=== PATIENT | male | born 1970 | race Native Hawaiian/Other Pacific Islander ===

== ENCOUNTER 2018-12-22 11:02 | Observation (INO) | payer OTHER ==
--- NOTE | 2018-12-22 11:19 | C.PDOC ---
History Of Present Illness 48 year old male with PMHx of CAD, 3 cardiac stents, diabetes, HTN and HLD presents to the ED complaining of chest pain that started on the right side and now radiates to left side. Describes pain as throbbing and rates pain as 2-3/10. Denies any nausea, vomiting, shortness of breath, or any other symptoms. PMD: Dr. Stock Product Support Technician: Dr. Farfan Time Seen by Provider: 12/22/18 11:05 Chief Complaint (Nursing): Chest Pain History Per: Patient History/Exam Limitations: no limitations Onset/Duration Of Symptoms: Days Current Symptoms Are (Timing): Still Present Quality: "Pain" Past Medical History Reviewed: Historical Data, Nursing Documentation, Vital Signs Vital Signs: Last Vital Signs Temp 98.8 F 12/22/18 11:06 Pulse 83 12/22/18 11:06 Resp 18 12/22/18 11:06 BP 178/96 H 12/22/18 11:06 Pulse Ox 100 12/22/18 11:06 Primary Care Provider: Brent Felix - Medical History PMH: Asthma, Benign Prostatic Hyperplasia, HTN, Hypercholesterolemia Surgical History: Coronary Stent (x3) Family History: States: No Known Family Hx - Social History Hx Alcohol Use: No Hx Substance Use: No - Immunization History Hx Tetanus Toxoid Vaccination: Yes Hx Influenza Vaccination: No Hx Pneumococcal Vaccination: No Review Of Systems Except As Marked, All Systems Reviewed And Found Negative. Constitutional: Negative for: Fever, Chills Cardiovascular: Positive for: Chest Pain Respiratory: Negative for: Shortness of Breath Gastrointestinal: Negative for: Nausea, Vomiting Physical Exam - Physical Exam Appears: Non-toxic, No Acute Distress Skin: Warm, Dry, No Rash Head: Normacephalic Eye(s): bilateral: Normal Inspection Nose: Normal Oral Mucosa: Moist Neck: Supple Chest: Symmetrical, No Tenderness Cardiovascular: Rhythm Regular Respiratory: Normal Breath Sounds, No Rales, No Rhonchi, No Wheezing Gastrointestinal/Abdominal: Soft, No Tenderness Neurological/Psych: Oriented x3, Normal Speech Gait: Steady ED Course And Treatment - Laboratory Results Result Diagrams: 12/22/18 11:53 12/22/18 11:53 ECG: Interpreted By Me, Viewed By Me ECG Rhythm: Sinus Rhythm ECG Interpretation: No Acute Changes Interpretation Of ECG: LVH Rate From EC O2 Sat by Pulse Oximetry: 100 (RA) Pulse Ox Interpretation: Normal - Radiology CXR: Interpreted by Me CXR Interpretation: Yes: No Acute Disease Progress Note: Blood collected and sent to the lab for analysis. Case was d/w who accepted patient to his service to [facility] for observation. Disposition - Disposition Disposition: HOSPITALIZED Disposition Time: 14:07 Condition: FAIR - Clinical Impression Clinical Impression: Chest pain - PA / [employer] WORKER / Resident Statement MD/DO has reviewed & agrees with the documentation as recorded. - Scribe Statement The provider has reviewed the documentation as recorded by the Scribe Socorro Pastor All medical record entries made by the Scribe were at my direction and personally dictated by me. I have reviewed the chart and agree that the record accurately reflects my personal performance of the history, physical exam, medical decision making, and the department course for this patient. I have also personally directed, reviewed, and agree with the discharge instructions and disposition. Decision To Admit - Pt Status Changed To: Hospital Disposition Of: Observation - . Bed Request Type: Telemetry Admitting Physician: Rey Lopez Patient Diagnosis: Chest pain
[2018-12-22 12:11] LABS: ALB/GLOB RATIO 1.7 (1.0-2.1); ALBUMIN 4.8 g/dL (3.5-5.0); ALT/SGPT 37 U/L (21-72); AST/SGOT 28 U/L (17-59); BLOOD UREA NITROGEN 14 mg/dL (9-20); CALCIUM 9.5 mg/dl (8.6-10.4); GFR NON-AFRICAN AMERICAN > 60
[2018-12-22 12:23] LABS: BASO # 0.1 K/uL (0.0-0.2); CK-MB 0.73 ng/mL (0.0-3.38); EOS # 0.6 K/uL (0.0-0.7); EOS % 10.3 % (0.0-4.0); HEMOGLOBIN 13.8 g/dL (12.0-18.0); LYMPH # 0.8 K/uL (1.0-4.3); LYMPH % 13.8 % (20.0-40.0); MEAN CELL VOLUME 86.6 fL (80.0-94.0); MEAN CORPUSCULAR HGB CONC 34.6 g/dL (33.0-37.0); MEAN PLATELET VOLUME 7.8 fL (7.2-11.7); MONO # 0.4 K/uL (0.0-0.8); MONO % 7.4 % (0.0-10.0); NEUT # 3.9 K/uL (1.8-7.0); NEUT % 67.5 % (50.0-75.0); RBC 4.6 Mil/uL (4.40-5.90); RED CELL DISTRIBUTION WIDTH 13.7 % (11.5-14.5); WHITE BLOOD COUNT 5.7 K/uL (4.8-10.8)
[2018-12-22 12:31] LABS: INR 1.1; PROTHROMBIN TIME 11.7 SECONDS (9.7-12.2)
[2018-12-22 12:42] LABS: D DIMER < 200 ng/mlDDU (0-243)
--- NOTE | 2018-12-22 14:15 | RAD ---
Date of service: 12/22/2018 HISTORY: chest pain COMPARISON: No prior. TECHNIQUE: 1 view obtained. FINDINGS: LUNGS: No active pulmonary disease. PLEURA: No significant pleural effusion identified, no pneumothorax apparent. CARDIOVASCULAR: No aortic atherosclerotic calcification present. Normal cardiac size. No pulmonary vascular congestion. OSSEOUS STRUCTURES: No significant abnormalities. VISUALIZED UPPER ABDOMEN: Normal. OTHER FINDINGS: None. IMPRESSION: No active disease.
--- NOTE | 2018-12-22 17:03 | CP.PCM.HP ---
Past Patient History - Past Social History Smoking Status: Never Smoked - CARDIAC Hx Hypercholesterolemia: Yes Hx Hypertension: Yes - PULMONARY Hx Asthma: Yes - PSYCHIATRIC Hx Substance Use: No - SURGICAL HISTORY Hx Coronary Stent: Yes (x3) Meds Allergies/Adverse Reactions: Allergies Allergy/AdvReac Type Severity Reaction Status Date / Time aspirin [From [place]] Allergy Verified 12/22/18 11:11 brompheniramine Allergy Verified 12/22/18 11:11 [From Dimet[place] (brompheniramine-PPA)] citric acid Allergy Verified 12/22/18 11:11 [From [facility]] phenylpropanolamine Allergy Verified 12/22/18 11:11 [From Dimetapp (brompheniramine-PPA)] sodium bicarbonate Allergy Verified 12/22/18 11:11 [From [place]] Results - Vital Signs Recent Vital Signs: Last Vital Signs Temp 98.8 F 12/22/18 11:06 Pulse 68 12/22/18 16:00 Resp 15 12/22/18 14:55 BP 131/86 12/22/18 14:55 Pulse Ox 100 12/22/18 14:55 - Labs Result Diagrams: 12/22/18 11:53 12/22/18 11:53 Labs: Laboratory Results - last 24 hr 12/22/18 12/22/18 12/22/18 11:53 11:53 11:53 WBC 5.7 RBC 4.60 Hgb 13.8 Hct 39.8 MCV 86.6 MCH 30.0 MCHC 34.6 RDW 13.7 Plt Count 200 MPV 7.8 Neut % (Auto) 67.5 Lymph % (Auto) 13.8 L [place] % (Auto) 7.4 Eos % (Auto) 10.3 H Baso % (Auto) 1.0 Neut # (Auto) 3.9 Lymph # (Auto) 0.8 L [place] # (Auto) 0.4 Eos # (Auto) 0.6 Baso # (Auto) 0.1 PT 11.7 INR 1.1 APTT 32.0 D-Dimer, Quantitative < 200 Sodium 140 Potassium 3.8 Chloride 98 Carbon Dioxide 27 Anion Gap 18 BUN 14 Creatinine 0.9 Est GFR ( Amer) > 60 Est GFR (Non-Af Amer) > 60 Random Glucose 199 H Calcium 9.5 Total Bilirubin 0.8 AST 28 ALT 37 Alkaline Phosphatase 78 Total Creatine Kinase 119 CK-MB (Mass) 0.73 Troponin I < 0.0120 Total Protein 7.6 Albumin 4.8 Globulin 2.8 Albumin/Globulin Ratio 1.7
[2018-12-22] MEDS: (Novolog) Insulin Aspart, Recombinant 100 u/ml 10 ml vial SC SCH ×2 (17:19→21:20)
[2018-12-22 20:04] LABS: CK-MB 0.51 ng/mL (0.0-3.38)
--- NOTE | 2018-12-22 20:42 | CP.PCM.CON ---
History of Present Illness - History of Present Illness History of Present Illness: CC: Chest Pain 48 year old male with PMHx of CAD, 3 cardiac stents, diabetes, HTN and HLD presents to the ED complaining of chest pain that started on the right side and now radiates to left side. Describes pain as throbbing and rates pain as 2-3/10. Denies any nausea, vomiting, shortness of breath, or any other symptoms. PMD: Dr. Stock Teletype Clerk: Dr. Farfan Chief Complaint (Nursing): Chest Pain History Per: Patient History/Exam Limitations: no limitations Onset/Duration Of Symptoms: Days Current Symptoms Are (Timing): Still Present Quality: "Pain" Past Medical History Reviewed: Historical Data, Nursing Documentation, Vital Signs Vital Signs: Last Vital Signs Temp 98.8 F 12/22/18 11:06 Pulse 83 12/22/18 11:06 Resp 18 12/22/18 11:06 BP 178/96 H 12/22/18 11:06 Pulse Ox 100 12/22/18 11:06 Primary Care Provider: Brent Felix - Medical History PMH: Asthma, Benign Prostatic Hyperplasia, HTN, Hypercholesterolemia Surgical History: Coronary Stent (x3) Family History: States: No Known Family Hx - Social History Hx Alcohol Use: No Hx Substance Use: No - Immunization History Hx Tetanus Toxoid Vaccination: Yes Hx Influenza Vaccination: No Hx Pneumococcal Vaccination: No Review Of Systems Except As Marked, All Systems Reviewed And Found Negative. Constitutional: Negative for: Fever, Chills Cardiovascular: Positive for: Chest Pain Respiratory: Negative for: Shortness of Breath Gastrointestinal: Negative for: Nausea, Vomiting Physical Exam - Physical Exam Appears: Non-toxic, No Acute Distress Skin: Warm, Dry, No Rash Head: Normacephalic Eye(s): bilateral: Normal Inspection Nose: Normal Oral Mucosa: Moist Neck: Supple Chest: Symmetrical, No Tenderness Cardiovascular: Rhythm Regular Respiratory: Normal Breath Sounds, No Rales, No Rhonchi, No Wheezing Gastrointestinal/Abdominal: Soft, No Tenderness Neurological/Psych: Oriented x3, Normal Speech Gait: Steady Past Patient History - Past Social History Smoking Status: Never Smoked - CARDIAC Hx Hypercholesterolemia: Yes Hx Hypertension: Yes - PULMONARY Hx Asthma: Yes - PSYCHIATRIC Hx Substance Use: No - SURGICAL HISTORY Hx Coronary Stent: Yes (x3) Meds Allergies/Adverse Reactions: Allergies Allergy/AdvReac Type Severity Reaction Status Date / Time aspirin [From [place]] Allergy Verified 12/22/18 11:11 brompheniramine Allergy Verified 12/22/18 11:11 [From Dimetapp (brompheniramine-PPA)] citric acid Allergy Verified 12/22/18 11:11 [From [place]] phenylpropanolamine Allergy Verified 12/22/18 11:11 [From Dimetapp (brompheniramine-PPA)] sodium bicarbonate Allergy Verified 12/22/18 11:11 [From [place]] - Medications Medications: Current Medications Clopidogrel Bisulfate (Plavix) 75 mg PO DAILY [facility] Ezetimibe (Zetia) 10 mg PO DAILY [facility] Enoxaparin Sodium (Lovenox) 40 mg SC DAILY [facility] Escitalopram Oxalate (Lexapro) 10 mg PO DAILY [facility] Finasteride (Proscar) 5 mg PO DAILY [facility] Home Med (Alfuzosin Hcl [Alfuzosin Hcl Er]) 10 mg PO DAILY [facility] Insulin Aspart (Novolog) 0 unit SC [facility]; Protocol Last Admin: 12/22/18 17:19 Dose: Not Given Losartan Potassium (Cozaar) 50 mg PO DAILY [facility] Metformin HCl (Glucophage) 500 mg PO QAM [facility] Metformin HCl (Glucophage) 1,000 mg PO QPM [facility] Last Admin: 12/22/18 17:17 Dose: 1,000 mg Metoprolol Tartrate (Lopressor) 25 mg PO BID [facility] Last Admin: 12/22/18 17:18 Dose: 25 mg Results - Vital Signs Recent Vital Signs: Last Vital Signs Temp 98.8 F 12/22/18 11:06 Pulse 71 12/22/18 20:00 Resp 15 12/22/18 14:55 BP 131/86 12/22/18 14:55 Pulse Ox 100 12/22/18 18:46 - Labs Result Diagrams: 12/22/18 11:53 12/22/18 11:53 Labs: Laboratory Results - last 24 hr 12/22/18 12/22/18 12/22/18 11:53 11:53 11:53 WBC 5.7 RBC 4.60 Hgb 13.8 Hct 39.8 MCV 86.6 MCH 30.0 MCHC 34.6 RDW 13.7 Plt Count 200 MPV 7.8 Neut % (Auto) 67.5 Lymph % (Auto) 13.8 L [place] % (Auto) 7.4 Eos % (Auto) 10.3 H Baso % (Auto) 1.0 Neut # (Auto) 3.9 Lymph # (Auto) 0.8 L [place] # (Auto) 0.4 Eos # (Auto) 0.6 Baso # (Auto) 0.1 PT 11.7 INR 1.1 APTT 32.0 D-Dimer, Quantitative < 200 Sodium 140 Potassium 3.8 Chloride 98 Carbon Dioxide 27 Anion Gap 18 BUN 14 Creatinine 0.9 Est GFR ( Amer) > 60 Est GFR (Non-Af Amer) > 60 POC Glucose (mg/dL) Random Glucose 199 H Calcium 9.5 Total Bilirubin 0.8 AST 28 ALT 37 Alkaline Phosphatase 78 Total Creatine Kinase 119 CK-MB (Mass) 0.73 Troponin I < 0.0120 Total Protein 7.6 Albumin 4.8 Globulin 2.8 Albumin/Globulin Ratio 1.7 12/22/18 12/22/18 16:46 19:28 WBC RBC Hgb Hct MCV MCH MCHC RDW Plt Count MPV Neut % (Auto) Lymph % (Auto) [place] % (Auto) Eos % (Auto) Baso % (Auto) Neut # (Auto) Lymph # (Auto) [place] # (Auto) Eos # (Auto) Baso # (Auto) PT INR APTT D-Dimer, Quantitative Sodium Potassium Chloride Carbon Dioxide Anion Gap BUN Creatinine Est GFR ( Amer) Est GFR (Non-Af Amer) POC Glucose (mg/dL) 187 H Random Glucose Calcium Total Bilirubin AST ALT Alkaline Phosphatase Total Creatine Kinase 124 CK-MB (Mass) 0.51 Troponin I < 0.0120 Total Protein Albumin Globulin Albumin/Globulin Ratio Assessment & Plan - Assessment and Plan (Free Text) Assessment: 48 M with hx of multi vessel PCI admitted for chest pain Trop x 1 negative Check Stress test and ECHO
[2018-12-23 04:37] LABS: HDL CHOLESTEROL 38 mg/dL (30-70)
[2018-12-23 04:48] LABS: LDL CHOLESTEROL 81 mg/dL (0-129)
[2018-12-23 04:50] LABS: CK-MB 0.37 ng/mL (0.0-3.38)
[2018-12-23] MEDS ORDERED: Caffeine Citrated **INJ** 20 MG/ML IV ONE (08:14)
[2018-12-23] MEDS: (Novolog) Insulin Aspart, Recombinant 100 u/ml 10 ml vial SC SCH ×3 (08:27→17:32)
[2018-12-23] MEDS: Enoxaparin 40 mg Syringe SC SCH ×2 (10:15→13:01)
--- NOTE | 2018-12-23 16:55 | CP.PCM.PN ---
Subjective - Date & Time of Evaluation Date of Evaluation: 12/23/18 Time of Evaluation: 16:55 Objective - Vital Signs/Intake and Output Vital Signs (last 24 hours): Temp Pulse Resp BP Pulse Ox 98.7 F 62 20 148/79 97 12/22/18 23:00 12/23/18 15:36 12/22/18 23:00 12/22/18 23:00 12/22/18 23:00 - Medications Medications: Current Medications Clopidogrel Bisulfate (Plavix) 75 mg PO DAILY [facility] Last Admin: 12/23/18 13:01 Dose: 75 mg Ezetimibe (Zetia) 10 mg PO DAILY [facility] Last Admin: 12/23/18 10:15 Dose: Not Given Enoxaparin Sodium (Lovenox) 40 mg SC DAILY [facility] Last Admin: 12/23/18 13:01 Dose: 40 mg Escitalopram Oxalate (Lexapro) 10 mg PO DAILY [facility] Last Admin: 12/23/18 10:15 Dose: Not Given Finasteride (Proscar) 5 mg PO DAILY [facility] Last Admin: 12/23/18 13:00 Dose: 5 mg Insulin Aspart (Novolog) 0 unit SC [facility]; Protocol Last Admin: 12/23/18 12:00 Dose: Not Given Losartan Potassium (Cozaar) 50 mg PO DAILY [facility] Last Admin: 12/23/18 12:56 Dose: 50 mg Metformin HCl (Glucophage) 500 mg PO QAM [facility] Last Admin: 12/23/18 10:15 Dose: Not Given Metformin HCl (Glucophage) 1,000 mg PO QPM [facility] Last Admin: 12/22/18 17:17 Dose: 1,000 mg Metoprolol Tartrate (Lopressor) 25 mg PO BID [facility] Last Admin: 12/23/18 10:15 Dose: Not Given Pneumococcal Polyvalent Vaccine (Pneumovax 23 Vaccine) 0.5 ml IM .ONCE ONE Stop: 12/24/18 10:01 Tamsulosin HCl (Flomax) 0.4 mg PO DAILY [facility] - Labs Labs: 12/22/18 11:53 12/22/18 11:53 PT 11.7 SECONDS (9.7-12.2) 12/22/18 11:53 INR 1.1 12/22/18 11:53 APTT 32.0 SECONDS (21-34) 12/22/18 11:53
--- NOTE | 2018-12-23 21:32 | CARD ---
APPROVED REPORT Date of service: 12/23/2018 EXAM: Two-dimensional and M-mode echocardiogram with Doppler and color Doppler. INDICATION Chest Pain cardiac stents x3 RISK FACTORS Hypertension Hyperlipidemia Diabetes 2D DIMENSIONS IVSd1.2 (0.7-1.1cm)LVDd3.9 (3.9-5.9cm) PWd1.1 (0.7-1.1cm)LA Vttqma04 (18-58mL) LVDs2.0 (2.5-4.0cm)FS (%) 48.3 % LVEF (%)70.0 (>50%)LVEF (Dietz's)66.19 % M-Mode DIMENSIONS Left Atrium (MM)3.53 (2.5-4.0cm)IVSd1.06 (0.7-1.1cm) Aortic Root3.63 (2.2-3.7cm)LVDd3.84 (4.0-5.6cm) Aortic Cusp Exc.2.42 (1.5-2.0cm)PWd1.13 (0.7-1.1cm) FS (%) 42 %LVDs2.23 (2.0-3.8cm) LVEF (%)74 (>50%) Mitral Valve MV E Oydagfrf17.4cm/sMV A Bxqellso35.2cm/sE/A ratio0.9 TDI Lateral E' Peak V8.87cm/sMedial E' Peak V6.55cm/sE/Lateral E'5.1 E/Medial E'6.9 Tricuspid Valve TR Peak Fblrxsoy343hu/sTR Peak Gr.44zzNoLTAF55cvIn LEFT VENTRICLE The left ventricle is normal size. There is mildly increased left ventricular wall thickness. The left ventricular function is normal. The left ventricular ejection fraction is within the normal range. 66% No regional wall motion abnormalities noted. Transmitral Doppler flow pattern is Grade I-abnormal relaxation pattern. No left ventricle thrombus noted on this study. There is no ventricular septal defect visualized. There is no left ventricular aneurysm. There is no mass noted in the left ventricle. RIGHT VENTRICLE The right ventricle is normal size. There is normal right ventricular wall thickness. The right ventricular systolic function is normal. ATRIA The left atrium size is normal. The right atrium size is normal. The interatrial septum is intact with no evidence for an atrial septal defect. AORTIC VALVE The aortic valve is normal in structure and function. No aortic regurgitation is present. There is no aortic valvular stenosis. There is no aortic valvular vegetation. MITRAL VALVE The mitral valve is normal in structure and function. There is no evidence of mitral valve prolapse. There is no mitral valve stenosis. There is trace mitral valve regurgitation noted. TRICUSPID VALVE The tricuspid valve is normal in structure and function. There is no tricuspid valve regurgitation noted. There is no tricuspid valve prolapse or vegetation. There is no tricuspid valve stenosis. PULMONIC VALVE The pulmonary valve is normal in structure and function. There is no pulmonic valvular regurgitation. There is no pulmonic valvular stenosis. GREAT VESSELS The aortic root is normal in size. The ascending aorta is normal in size. The pulmonary artery is normal. The IVC is normal in size and collapses >50% with inspiration. PERICARDIAL EFFUSION The pericardium appears normal. There is no pleural effusion. <Conclusion> The left ventricular function is normal. The left ventricular ejection fraction is within the normal range. 66% Transmitral Doppler flow pattern is Grade I-abnormal relaxation pattern. There is mildly increased left ventricular wall thickness. Normal Doppler.
[2018-12-24 01:14] VITALS: RESP 20
[2018-12-24 07:48] VITALS: BP 146/72; TEMP 97.8
[2018-12-24] MEDS ORDERED: Pneumococcal 23-Valent Vaccine IM ONE (10:00)
[2018-12-24] MEDS: Enoxaparin 40 mg Syringe SC SCH (10:37)
[2018-12-24 12:45] VITALS: PULSE 85; O2SAT 96
--- NOTE | 2018-12-24 13:32 | CP.PCM.PN ---
Subjective - Date & Time of Evaluation Date of Evaluation: 12/24/18 Time of Evaluation: 11:20 - Subjective Subjective: Patient seen today Objective - Vital Signs/Intake and Output Vital Signs (last 24 hours): Temp Pulse Resp BP Pulse Ox 97.8 F 85 20 146/72 96 12/24/18 07:25 12/24/18 07:42 12/24/18 07:25 12/24/18 07:25 12/24/18 11:46 - Medications Medications: Current Medications Clopidogrel Bisulfate (Plavix) 75 mg PO DAILY [facility] Last Admin: 12/24/18 10:36 Dose: 75 mg Ezetimibe (Zetia) 10 mg PO DAILY [facility] Last Admin: 12/24/18 10:42 Dose: 10 mg Enoxaparin Sodium (Lovenox) 40 mg SC DAILY [facility] Last Admin: 12/24/18 10:37 Dose: 40 mg Escitalopram Oxalate (Lexapro) 10 mg PO DAILY [facility] Last Admin: 12/24/18 10:36 Dose: 10 mg Finasteride (Proscar) 5 mg PO DAILY [facility] Last Admin: 12/24/18 10:39 Dose: 5 mg Insulin Aspart (Novolog) 0 unit SC [facility]; Protocol Last Admin: 12/23/18 17:32 Dose: Not Given Losartan Potassium (Cozaar) 50 mg PO DAILY [facility] Last Admin: 12/24/18 10:37 Dose: 50 mg Metformin HCl (Glucophage) 500 mg PO QAM [facility] Last Admin: 12/24/18 10:36 Dose: 500 mg Metformin HCl (Glucophage) 1,000 mg PO QPM [facility] Last Admin: 12/23/18 17:32 Dose: 1,000 mg Metoprolol Tartrate (Lopressor) 25 mg PO BID [facility] Last Admin: 12/24/18 10:36 Dose: 25 mg Tamsulosin HCl (Flomax) 0.4 mg PO DAILY [facility] Last Admin: 12/24/18 10:35 Dose: 0.4 mg - Labs Labs: 12/22/18 11:53 12/22/18 11:53 PT 11.7 SECONDS (9.7-12.2) 12/22/18 11:53 INR 1.1 12/22/18 11:53 APTT 32.0 SECONDS (21-34) 12/22/18 11:53
--- NOTE | 2018-12-24 14:57 | CP.PCM.DIS ---
Provider - Provider Date of Admission: 12/22/18 13:59 Attending physician: Rey Lopez MD Consults: 12/22/18 16:31 Cardiology Consult Routine Comment: chest pain Consulting Provider: Ignacio Woodard Consulting Physician: Ignacio Woodard Reason for Consult: chest pain Hospital Course - Lab Results Lab Results: Most Recent Lab Values WBC 5.7 K/uL (4.8-10.8) 12/22/18 11:53 RBC 4.60 Mil/uL (4.40-5.90) 12/22/18 11:53 Hgb 13.8 g/dL (12.0-18.0) 12/22/18 11:53 Hct 39.8 % (35.0-51.0) 12/22/18 11:53 MCV 86.6 fL (80.0-94.0) 12/22/18 11:53 MCH 30.0 pg (27.0-31.0) 12/22/18 11:53 MCHC 34.6 g/dL (33.0-37.0) 12/22/18 11:53 RDW 13.7 % (11.5-14.5) 12/22/18 11:53 Plt Count 200 K/uL (130-400) 12/22/18 11:53 MPV 7.8 fL (7.2-11.7) 12/22/18 11:53 Neut % (Auto) 67.5 % (50.0-75.0) 12/22/18 11:53 Lymph % (Auto) 13.8 % (20.0-40.0) L 12/22/18 11:53 [place] % (Auto) 7.4 % (0.0-10.0) 12/22/18 11:53 Eos % (Auto) 10.3 % (0.0-4.0) H 12/22/18 11:53 Baso % (Auto) 1.0 % (0.0-2.0) 12/22/18 11:53 Neut # (Auto) 3.9 K/uL (1.8-7.0) 12/22/18 11:53 Lymph # (Auto) 0.8 K/uL (1.0-4.3) L 12/22/18 11:53 [place] # (Auto) 0.4 K/uL (0.0-0.8) 12/22/18 11:53 Eos # (Auto) 0.6 K/uL (0.0-0.7) 12/22/18 11:53 Baso # (Auto) 0.1 K/uL (0.0-0.2) 12/22/18 11:53 PT 11.7 SECONDS (9.7-12.2) 12/22/18 11:53 INR 1.1 12/22/18 11:53 APTT 32.0 SECONDS (21-34) 12/22/18 11:53 D-Dimer, Quantitative < 200 ng/mlDDU (0-243) 12/22/18 11:53 Sodium 140 mmol/L (132-148) 12/22/18 11:53 Potassium 3.8 mmol/L (3.6-5.2) 12/22/18 11:53 Chloride 98 mmol/L (98-107) 12/22/18 11:53 Carbon Dioxide 27 mmol/L (22-30) 12/22/18 11:53 Anion Gap 18 (10-20) 12/22/18 11:53 BUN 14 mg/dL (9-20) 12/22/18 11:53 Creatinine 0.9 mg/dL (0.8-1.5) 12/22/18 11:53 Est GFR ( Amer) > 60 12/22/18 11:53 Est GFR (Non-Af Amer) > 60 12/22/18 11:53 POC Glucose (mg/dL) 135 mg/dL (65-110) H 12/24/18 06:34 Random Glucose 199 mg/dL (75-110) H 12/22/18 11:53 Calcium 9.5 mg/dl (8.6-10.4) 12/22/18 11:53 Total Bilirubin 0.8 mg/dL (0.2-1.3) 12/22/18 11:53 AST 28 U/L (17-59) 12/22/18 11:53 ALT 37 U/L (21-72) 12/22/18 11:53 Alkaline Phosphatase 78 U/L (38-126) 12/22/18 11:53 Total Creatine Kinase 83 U/L (55-170) 12/23/18 04:22 CK-MB (Mass) 0.37 ng/mL (0.0-3.38) 12/23/18 04:22 Troponin I < 0.0120 ng/mL (0.00-0.120) 12/23/18 04:22 Total Protein 7.6 g/dL (6.3-8.3) 12/22/18 11:53 Albumin 4.8 g/dL (3.5-5.0) 12/22/18 11:53 Globulin 2.8 gm/dL (2.2-3.9) 12/22/18 11:53 Albumin/Globulin Ratio 1.7 (1.0-2.1) 12/22/18 11:53 Triglycerides 91 mg/dL (0-149) 12/23/18 04:22 Cholesterol 124 mg/dL (0-199) 12/23/18 04:22 LDL Cholesterol Direct 81 mg/dL (0-129) 12/23/18 04:22 HDL Cholesterol 38 mg/dL (30-70) 12/23/18 04:22 Discharge Plan - Follow Up Plan Condition: FAIR Disposition: HOME/ ROUTINE Instructions: Heart Healthy Diet, Chest Pain (DC) Additional Instructions: Please follow up with office in 1 week Please continue medication as per med. rec. Please resume work on Referrals: Brent Felix MD [Staff Provider] -
--- NOTE | 2018-12-24 21:48 | CP.PCM.PN ---
Subjective - Date & Time of Evaluation Date of Evaluation: 12/23/18 Time of Evaluation: 18:50 - Subjective Subjective: Patient seen and evaluated Denies chest pain and dyspnea Review Of Systems Except As Marked, All Systems Reviewed And Found Negative. Constitutional: Negative for: Fever, Chills Cardiovascular: Positive for: Chest Pain Respiratory: Negative for: Shortness of Breath Gastrointestinal: Negative for: Nausea, Vomiting Physical Exam - Physical Exam Appears: Non-toxic, No Acute Distress Skin: Warm, Dry, No Rash Head: Normacephalic Eye(s): bilateral: Normal Inspection Nose: Normal Oral Mucosa: Moist Neck: Supple Chest: Symmetrical, No Tenderness Cardiovascular: Rhythm Regular Respiratory: Normal Breath Sounds, No Rales, No Rhonchi, No Wheezing Gastrointestinal/Abdominal: Soft, No Tenderness Neurological/Psych: Oriented x3, Normal Speech Gait: Steady Objective - Vital Signs/Intake and Output Vital Signs (last 24 hours): Temp Pulse Resp BP Pulse Ox 97.8 F 85 20 146/72 96 12/24/18 07:25 12/24/18 07:42 12/24/18 07:25 12/24/18 07:25 12/24/18 11:46 - Labs Labs: 12/22/18 11:53 12/22/18 11:53 PT 11.7 SECONDS (9.7-12.2) 12/22/18 11:53 INR 1.1 12/22/18 11:53 APTT 32.0 SECONDS (21-34) 12/22/18 11:53 Assessment and Plan - Assessment and Plan (Free Text) Assessment: 48 M with hx of multi vessel PCI admitted for chest pain Trop x 3 negative Stress test Normal ECHO: Normal EF D/C Patient home F/U Dr. Felix for further management
--- NOTE | 2018-12-26 03:39 | CARD ---
APPROVED REPORT Date of service: 12/23/2018 EKG Measurement Heart [id number] <Conclusion> Normal sinus rhythm Left axis deviation Left ventricular hypertrophy with QRS widening Abnormal ECG
== END 2018-12-24 14:39 | disposition home or self-care (01) ==
LOC: C.ER 11:02 → C.9E 13:59 → C.6T 14:14
PROVIDERS: ADMIT Internal Medicine Critical Care Medicine; ATTEND Internal Medicine Critical Care Medicine
DX: R07.89 Other chest pain (principal); I10 Essential (primary) hypertension; E11.9 Type 2 diabetes mellitus without complications; I25.10 Atherosclerotic heart disease of native coronary artery without angina pectoris; J45.909 Unspecified asthma, uncomplicated; N40.0 Benign prostatic hyperplasia without lower urinary tract symptoms; E78.5 Hyperlipidemia, unspecified; E78.00 Pure hypercholesterolemia, unspecified; Z95.5 Presence of coronary angioplasty implant and graft
CPT/HCPCS: 36415; 71045; 78452; 80053; 80061; 82550; 82553; 82948; 84484; 85025; 85378; 85610; 85730; 90471; 90732; 93017; 93306; 99285; A9502; G0378; J1650; J2785